=== PATIENT | female | born 1955 | race Two or more races ===

== ENCOUNTER 2020-07-08 08:55 | Outpatient (CLI) | payer OTHER | END 2020-07-08 09:01 | disposition home or self-care (01) | LOC: SONOGRAMA 08:55 | PROVIDERS: ATTEND Pathology Anatomic Pathology & Clinical Pathology | DX: D34 Benign neoplasm of thyroid gland (principal); E04.8 Other specified nontoxic goiter ==

== ENCOUNTER 2021-02-23 07:09 | Day surgery (SDC) | payer OTHER ==
[~2021-02-23 07:09] MED LIST: BYSTOLIC2.5 MG PO; MAXIMUM D3325 MCG PO; ZETIA10 MG PO
[2021-02-23] MEDS ORDERED: PERCOCET 5-3251 EACH PO (12:52)
== END 2021-02-23 16:20 | disposition home or self-care (01) ==
LOC: CIR.AMB 07:09
PROVIDERS: ATTEND Surgery
DX: D35.1 Benign neoplasm of parathyroid gland (principal)